=== PATIENT | male | born 1935 | race Caucasian/White ===

== ENCOUNTER 2017-09-13 10:31 | Inpatient (IN) | payer MEDICARE ==
[2017-09-13 11:16] LABS: ADD MAN DIFF? NO
[2017-09-13 11:24] LABS: BASO % 0 % (0-3); EOS # 0.1 x10^3/uL (0.0-0.7); EOS % 3 % (0-3); HEMATOCRIT 40.8 % (39.0-53.0); HEMOGLOBIN 14.1 g/dL (13.0-17.5); LYMPH # 0.5 x10^3/uL (1.0-4.8); LYMPH % 13 % (24-48); MEAN CORPUSCULAR HEMOGLOBIN 31 pg (25-35); MEAN CORPUSCULAR HGB CONC 35 g/dL (31-37); MEAN CORPUSCULAR VOLUME 91 fL (79-100); MONO # 0.3 x10^3/uL (0.0-1.1); MONO % 8 % (0-9); NEUT # 3.1 x10^3uL (1.8-7.7); NEUT % 75 % (31-73); PLATELET COUNT 122 x10^3/uL (140-400); RED BLOOD COUNT 4.51 x10^6/uL (4.30-5.70); RED CELL DISTRIBUTION WIDTH 12.5 % (11.5-14.5); WHITE BLOOD COUNT 4.1 x10^3/uL (4.0-11.0)
[2017-09-13 11:29] LABS: ANION GAP 6 (6-14); BLOOD UREA NITROGEN 7 mg/dL (8-26); CALCIUM 8.5 mg/dL (8.5-10.1); CARBON DIOXIDE 28 mmol/L (21-32); CHLORIDE 91 mmol/L (98-107); CREATININE 0.9 mg/dL (0.7-1.3); GFR 81.2; GLUCOSE 115 mg/dL (70-99); POTASSIUM 4.5 mmol/L (3.5-5.1); SODIUM 125 mmol/L (136-145)
[2017-09-13 11:34] LABS: ALBUMIN 3.7 g/dL (3.4-5.0); ALK PHOS 58 U/L (46-116); ALT (SGPT) 22 U/L (16-63); AST (SGOT) 24 U/L (15-37); DIRECT BILIRUBIN 0.3 mg/dL (0.0-0.2); INR 1.1 (0.8-1.1); LIPASE 207 U/L (73-393); PARTIAL THROMBOPLASTIN TIME 31 SEC (24-38); PROTHROMBIN TIME PATIENT 13.6 SEC (11.7-14.0); TOTAL BILIRUBIN 1.2 mg/dL (0.2-1.0); TOTAL PROTEIN 6.1 g/dL (6.4-8.2)
[2017-09-13 11:36] LABS: TROPONINI 0.018 ng/mL (0.000-0.055)
[2017-09-13] MEDS: IV NORMAL SALINE 1000ML BAG 1,000 ML IV ×4 (11:41→13:29)
[2017-09-13 11:43] LABS: NT-PRO BNP 874 pg/mL (0-449)
[2017-09-13] MEDS ORDERED: NITROGLYCERIN SUBLINGUAL 0.4 MG BOTTLE OF 25. SL ×2 (12:30)
[2017-09-13] MEDS ORDERED: ONDANSETRON PF 4 MG/2 ML VIAL. IV ×2 (12:30)
[2017-09-13] MEDS ORDERED: MORPHINE SULFATE 2 MG/ML DISP.SYRIN. IV ×2 (12:30)
[2017-09-13 13:23] LABS: CHOLESTEROL 156 mg/dL (0-200); CHOLESTEROL/HDL RATIO 2.9; HDLC 53 mg/dL (40-60); LDLC 86 mg/dL (0-100); NON-HDL CHOLESTEROL 103 mg/dL (0-129); TRIGLYCERIDES 86 mg/dL (0-150); VLDLC 17 mg/dL (0-40)
[2017-09-13 13:31] LABS: THYROID STIM HORMONE (TSH) 0.366 uIU/mL (0.358-3.74)
[2017-09-13] MEDS ORDERED: ENOXAPARIN 40 MG/0.4 ML SYRINGE. SQ ×2 (16:15)
[2017-09-13 16:47] LABS: POC GLUCOSE 74 mg/dL (70-99)
[2017-09-13] MEDS: metFORMIN 500 MG TABLET PO ×2 (17:00)
[2017-09-13] MEDS: ENOXAPARIN 40 MG/0.4 ML SYRINGE. SQ ×2 (20:41)
[2017-09-13] MEDS: hydrOXYzine PAMOATE 25 MG CAPSULE PO ×2 (20:41)
[2017-09-14 00:12] LABS: POC GLUCOSE 115 mg/dL (70-99)
[2017-09-14 04:51] LABS: ADD MAN DIFF? NO
[2017-09-14 04:57] LABS: BASO % 1 % (0-3); EOS # 0.2 x10^3/uL (0.0-0.7); EOS % 6 % (0-3); HEMATOCRIT 36.8 % (39.0-53.0); LYMPH # 0.8 x10^3/uL (1.0-4.8); LYMPH % 20 % (24-48); MEAN CORPUSCULAR HEMOGLOBIN 32 pg (25-35); MEAN CORPUSCULAR HGB CONC 35 g/dL (31-37); MEAN CORPUSCULAR VOLUME 90 fL (79-100); MONO # 0.3 x10^3/uL (0.0-1.1); MONO % 8 % (0-9); NEUT # 2.5 x10^3uL (1.8-7.7); NEUT % 65 % (31-73); PLATELET COUNT 108 x10^3/uL (140-400); RED BLOOD COUNT 4.09 x10^6/uL (4.30-5.70); RED CELL DISTRIBUTION WIDTH 12.5 % (11.5-14.5); WHITE BLOOD COUNT 3.8 x10^3/uL (4.0-11.0)
[2017-09-14 05:23] LABS: ALBUMIN 3.1 g/dL (3.4-5.0); ALBUMIN/GLOBULIN RATIO 1.3 (1.0-1.7); ALK PHOS 54 U/L (46-116); ALT (SGPT) 20 U/L (16-63); ANION GAP 8 (6-14); AST (SGOT) 19 U/L (15-37); BLOOD UREA NITROGEN 8 mg/dL (8-26); BUN/CREATININE RATIO 10 (6-20); CALCIUM 8.3 mg/dL (8.5-10.1); CARBON DIOXIDE 24 mmol/L (21-32); CHLORIDE 97 mmol/L (98-107); CREATININE 0.8 mg/dL (0.7-1.3); GLUCOSE 93 mg/dL (70-99); POTASSIUM 3.6 mmol/L (3.5-5.1); SODIUM 129 mmol/L (136-145); TOTAL BILIRUBIN 0.9 mg/dL (0.2-1.0); TOTAL PROTEIN 5.4 g/dL (6.4-8.2)
[2017-09-14 05:25] LABS: TROPONINI 0.031 ng/mL (0.000-0.055)
[2017-09-14 08:18] LABS: POC GLUCOSE 78 mg/dL (70-99)
[2017-09-14] MEDS: POLYETHYLENE GLYCOL 3350 17 GM PACKET. PO ×2 (09:00)
[2017-09-14] MEDS ORDERED: METOPROLOL SUCC 24HR ER 25 MG TAB.ER.24H. PO ×2 (09:00)
[2017-09-14] MEDS ORDERED: NON FORMULARY ITEM (Omeprazole 20 MG) PO ×2 (09:00)
[2017-09-14] MEDS: REGADENOSON 0.4 MG/5 ML DISP.SYRIN. IV ×2 (12:52)
[2017-09-14] MEDS: metFORMIN 500 MG TABLET PO ×2 (13:24)
[2017-09-14] MEDS: PANTOPRAZOLE 40 MG TABLET.DR. PO ×2 (13:24)
[2017-09-14] MEDS: TAMSULOSIN 0.4 MG CAP.ER.24H. PO ×2 (13:24)
[2017-09-14] MEDS: LISINOPRIL 10 MG TABLET PO ×2 (13:25)
[2017-09-14] MEDS: METOPROLOL SUCC 24HR ER 50 MG TAB.ER.24H. PO ×2 (13:25)
[2017-09-14 17:21] LABS: POC GLUCOSE 80 mg/dL (70-99)
[2017-09-14] MEDS ORDERED: SIMVASTATIN 40 MG TABLET. PO ×2 (21:00)
== END 2017-09-14 17:55 | disposition home or self-care (01) | DRG 303 ==
LOC: ER 10:31 → ED HOLD 12:12 → 5 NORTH 14:50
DX: I25.118 Atherosclerotic heart disease of native coronary artery with other forms of angina pectoris (principal); E87.1 Hypo-osmolality and hyponatremia; E11.9 Type 2 diabetes mellitus without complications; I11.9 Hypertensive heart disease without heart failure; R00.1 Bradycardia, unspecified; Z95.5 Presence of coronary angioplasty implant and graft; M19.90 Unspecified osteoarthritis, unspecified site; E78.00 Pure hypercholesterolemia, unspecified; E78.5 Hyperlipidemia, unspecified; H91.90 Unspecified hearing loss, unspecified ear; J00 Acute nasopharyngitis [common cold]; K21.9 Gastro-esophageal reflux disease without esophagitis; Z95.1 Presence of aortocoronary bypass graft; Z85.038 Personal history of other malignant neoplasm of large intestine; Z90.49 Acquired absence of other specified parts of digestive tract
CPT/HCPCS: 36415; 71045; 78452; 80048; 80053; 80061; 80076; 82962; 83690; 83880; 84443; 84484; 85025; 85610; 85730; 93005; 93017; 96360; 96361; 96374; 96375; 96376; 99285; 99285-25; A9500; J1650; J2785; J7030; Q0177